=== PATIENT | male | born 1945 | race Caucasian/White ===

== ENCOUNTER 2022-05-27 08:51 | Outpatient (CLI) | payer MEDICARE | END 2022-05-27 08:52 | disposition home or self-care (01) | LOC: CSHRAD 08:51 | PROVIDERS: ATTEND Urology | DX: Z01.818 Encounter for other preprocedural examination (principal); N40.1 Benign prostatic hyperplasia with lower urinary tract symptoms; F52.21 Male erectile disorder; M54.16 Radiculopathy, lumbar region; R35.0 Frequency of micturition; N20.0 Calculus of kidney; Z87.438 Personal history of other diseases of male genital organs; Z12.5 Encounter for screening for malignant neoplasm of prostate; H40.9 Unspecified glaucoma | CPT/HCPCS: 93005; 93010 ==